=== PATIENT | male | born 1990 | race African-American/Black ===

== ENCOUNTER 2022-11-15 20:32 | Emergency (ER) | payer SELFPAY ==
[~2022-11-15] VITALS: Ht 185.4 cm; Wt 76.9 kg
[2022-11-15] MEDS ORDERED: ACETAMINOPHEN 325MG TABLET PO ONE (22:45)
[2022-11-16] MEDS ORDERED: AMOX1TAB16 MT (00:27)
[2022-11-16] MEDS ORDERED: CEPH500T MT ×2 (00:27)
[2022-11-16] MEDS ORDERED: TOPUD MT (00:44)
[2022-11-16] MEDS ORDERED: ACETAMINOPHEN 325MG TABLET PO NR (01:00)
[2022-11-16 01:07] VITALS: BP 128/74
== END 2022-11-16 01:05 | disposition home or self-care (01) ==
LOC: ER 20:32
DX: S02.5XXA Fracture of tooth (traumatic), initial encounter for closed fracture (principal); W18.39XA Other fall on same level, initial encounter; Y93.89 Activity, other specified; Y92.89 Other specified places as the place of occurrence of the external cause; Y99.8 Other external cause status; I10 Essential (primary) hypertension
CPT/HCPCS: 73130; 99283